=== PATIENT | female | born 1950 | race Caucasian/White ===

== ENCOUNTER 2021-10-21 11:25 | Emergency (ER) | payer MEDICARE, OTHER, SELFPAY ==
[2021-10-21 11:55] VITALS: BP 161/76; PULSE 96; RESP 20; TEMP 36.7; O2SAT 100
[2021-10-21] MEDS: TETANUS,DIPHTHERIA,AC PERTUSSIS ADULT (0.5 ML) BOOSTRIX IM (12:12)
--- NOTE | 2021-10-21 12:30 | ED.ANIMALBIT ---
HPI - Animal Bite General Chief Complaint: Animal Bite Stated Complaint: Dog Bite/Face Time Seen by Provider: 10/21/21 12:08 Source: patient, RN notes reviewed and old records reviewed Mode of arrival: ambulatory Limitations: no limitations History of Present Illness HPI narrative: 71 year old female who presents to [facility] care with complaints of injury sustained due to dog bite to chin and puncture wound under chin which occurred at around 0930 yesterday morning. Patient state that dog hit her in the mouth with its head chipping her top left denture 2 teeth with cut into her left upper and lower lips. Patient reports that her tetanus is not up to date. Patient has scabbing to her chin and to area under chin puncture wound with scabbing but also some surrounding redness. Patient denies any loss of consciousness or any other injuries. Patient states discomfort at 4/10 has taken some Ibuprofen for her discomfort. MD complaint: animal bite (dog) Onset (ago): day(s) (1) Location: face and neck Pain description: dull Severity scale (1-10): 4 Context: unprovoked Associated symptoms: other (redness around puncture wound under chin) Treatments prior to arrival: antibiotic ointment Related Data Patient tetanus UTD: No Home Medications Medication Instructions Recorded Confirmed timolol maleate 1 drp RIGHT EYE BID 10/21/21 10/21/21 Allergies Allergy/AdvReac Type Severity Reaction Status Date / Time No Known Allergies Allergy Verified 10/21/21 12:11 Review of Systems Review of Systems: CONSTITUTIONAL: Denies fever, chills, or sweats. EYES: Denies visual changes, redness, or discharge. ENT: Denies rhinorrhea, congestion, sore throat, or otalgia.cuts to inside of upper and lower left lips, puncture wound to area under chin and abrasion type of wounds to chin CARDIOVASCULAR: Denies chest pain, palpitations, or edema. RESPIRATORY: Denies cough or dyspnea. GASTROINTESTINAL: Denies abdominal pain, nausea, vomiting, or diarrhea. GENITOURINARY: Denies dysuria or hematuria. SKIN: Denies rash or itching. MUSCULOSKELETAL: Denies back pain, joint pain, or myalgia. NEUROLOGIC: Denies headache, numbness, or weakness. PSYCHIATRIC: Denies anxiety or depression. All systems reviewed & are unremarkable except as noted in HPI and below [facility] Past Medical History Medical History (Updated 10/23/21 @ 21:45 by Carol Aguillon NP) Macular degeneration Post menopausal problems Social History Social History (Updated 10/23/21 @ 21:46 by Carol Aguillon NP) Smoking packs per day: 1 Smoking cigarettes per day: 20.0 Years smoked: 50 Smoking pack-years: 50.00 Smoking status: Current every day smoker Tobacco type: cigarettes Alcohol intake: unknown Substance use type: does not use Living arrangements: with family Gender identity (if verbalized by the patient): Female Comments At time of signature, agree with nursing past medical, surgical, social and family history. There is no relevant family history pertinent to the presenting complaint Exam Narrative: GENERAL: Well-appearing, well-nourished, and in no acute distress. HEAD: Normocephalic, atraumatic. EYES: PERRLA and EOMI. ENT: Nares clear, no rhinorrhea or epistaxis. Mucous membranes moist.TM's normal with good light reflex, throat pink with no lesions or exudates or tonsil swelling, dentures chipped upper left teeth X2 with cuts to inside of left upper and lower lips NECK: Supple.no lymphadenopathy CHEST: Clear to auscultation. No respiratory distress.SAO2 100% on room air HEART: Regular rate and rhythm. No murmur heard. Normal peripheral pulses. ABDOMEN: Soft, nontender, nondistended, normal active bowel sounds. EXTREMITIES: Normal range of motion. No edema. SKIN: Warm, dry, no rash. Abrasion type of wound on chin with some scabbing no drainage noted, puncture wound under chin also scabbing with some surrounding redness noted NEURO: No focal deficits. Alert and oriented x3.
== END 2021-10-21 12:50 | disposition home or self-care (01) ==
PROVIDERS: Emergency Provider Registered Nurse; PCP Internal Medicine
DX: S01.83XA Puncture wound without foreign body of other part of head, initial encounter (principal); W54.0XXA Bitten by dog, initial encounter; Z23 Encounter for immunization; F17.210 Nicotine dependence, cigarettes, uncomplicated; H35.30 Unspecified macular degeneration
CPT/HCPCS: 90471; 90715; 99213; G0463